=== PATIENT | male | born 1960 | race Caucasian/White ===

== ENCOUNTER → 2018-10-28 12:04 | Outpatient (CLI) | payer OTHER, SELFPAY ==
--- NOTE | 2018-10-28 12:07 | XR_ITS ---
XR knee LT 4V HISTORY: ITS.REASON: Lt knee pain ORDERING PHYSICIAN: Francesca Calderon MD PATIENT AGE: 57 years COMPARISON: None FINDINGS: No fracture or dislocation. No lytic or blastic change. Normal mineralization. No significant arthritic changes evident. No other significant findings IMPRESSION: Negative Knee
== END ==
PROVIDERS: PCP Internal Medicine; Visit Provider Orthopaedic Surgery
DX: M25.562 Pain in left knee (principal)
CPT/HCPCS: 73564